=== PATIENT | male | born 1940 | race Caucasian/White ===

== ENCOUNTER 2019-05-04 00:53 | Inpatient (IN) | payer OTHER ==
[~2019-05-04] VITALS: Ht 162.6 cm; Wt 73.6 kg
[2019-05-04 01:00] VITALS: BP_SYST 120
[2019-05-04] MEDS ORDERED: lisinopril PO (01:41)
[2019-05-04] MEDS ORDERED: ALLOPURINOL PO (01:42)
[2019-05-04 03:00] LABS: BASOPHILS % (AUTO) 0.3 % (0.0-2.0); HEMOGLOBIN 14.3 g/dL (14.0-18.0); LYMPHOCYTES # (AUTO) 0.6 K/uL (1.0-5.5); LYMPHOCYTES % (AUTO) 4.2 % (20.5-51.5); MEAN CORPUSCULAR HEMOGLOBIN 32 pg (27-31); MEAN CORPUSCULAR HGB CONC 35 % (32-36); MEAN CORPUSCULAR VOLUME 91 fL (79.0-98.0); MONOCYTES # (AUTO) 0.6 K/uL (0.0-1.0); MONOCYTES % (AUTO) 4.2 % (1.7-9.3); NEUTROPHILS # (AUTO) 12.9 K/uL (1.8-7.7); NEUTROPHILS % (AUTO) 91.3 % (40.0-70.0); PLATELET COUNT (AUTO) 149 K/uL (130-430); RED BLOOD CELL COUNT(AUTO) 4.49 MIL/uL (4.2-6.2); RED CELL DISTRIBUTION WIDTH 14.4 % (9.0-15.0); WHITE BLOOD COUNT (AUTO) 14.1 K/uL (4.8-10.8)
[2019-05-04 03:25] LABS: ANION GAP 12 (5-15); CHLORIDE 98 mmol/L (98-107); CREATININE 1.67 mg/dL (0.55-1.30); GLUCOSE 210 mg/dL (70-99); POTASSIUM 3.6 mmol/L (3.5-5.1); SODIUM SERUM 133 mmol/L (136-145); UREA NITROGEN, BLOOD 22 mg/dL (8-21)
[2019-05-04 03:29] LABS: ALANINE AMINOTRANSFERASE 13 U/L (12-78); ALBUMIN 3.3 g/dL (3.4-4.8); ASPARTATE AMINOTRANSFERASE 16 U/L (10-37); TOTAL BILIRUBIN 0.9 mg/dL (0.0-1.0)
[2019-05-04] MEDS ORDERED: VANCOMYCIN HCL 1,000 MG in NS 250 ML IV ONE (04:00)
[2019-05-04] MEDS ORDERED: PIPERACILLIN/TAZO 3.375 GM in NS 50 ML IV ONE (04:00)
[2019-05-04] MEDS ORDERED: PIPERACILLIN/TAZOBACTAM 3.375 GM/VIAL (ZOSYN) IV ONE (04:08)
[2019-05-04] MEDS ORDERED: NACL 0.9% IV ONE (04:15)
[2019-05-04] MEDS ORDERED: NACL 0.9% 1,000 ML IV ONE (04:15)
[2019-05-04] MEDS ORDERED: VANCOMYCIN HCL 1000 MG/VIAL IV ONE ×2 (04:57)
[2019-05-04] MEDS ORDERED: NS IV ONE (05:45)
[2019-05-04] MEDS ORDERED: TAZO IV ONE (05:45)
[2019-05-04] MEDS ORDERED: PIPERACILLIN IV ONE (05:45)
[2019-05-04 06:19] VITALS: BP_SYST 145
[2019-05-04 06:26] LABS: BILIRUBIN,URINE NEGATIVE (NEGATIVE); BLOOD, URINE 3+ (NEGATIVE); CLARITY/URINE SL HAZY (CLEAR); COLOR,URINE YELLOW (YELLOW); GLUCOSE,URINE NEGATIVE (NEGATIVE); KETONES,URINE 1+ (NEGATIVE); LEUKOCYTE ESTERASE ,URINE NEGATIVE (NEGATIVE); NITRITE, URINE POSITIVE (NEGATIVE); PH,URINE 5.5 (5.0-8.0); PROTEIN URINE TRACE (NEGATIVE); UROBILINOGEN,URINE 0.2 (0.2-1.0)
[2019-05-04] MEDS: NACL 0.9% 1,000 ML IV SCH ×2 (06:36→20:47)
[2019-05-04 06:53] LABS: BACTERIA,URINE FEW /HPF (None Seen); MUCUS,URINE None Seen /LPF (None Seen); RBC,URINE >100 /HPF (0-3); WBC,URINE 0-3 /HPF (0-3)
[2019-05-04 08:22] VITALS: BP_SYST 143
[2019-05-04] MEDS ORDERED: INSULIN REGULAR, HUMAN 100 UNITS/ML, 10 ML VIAL (humuLIN R) SUBCUT PRN (10:15)
[2019-05-04] MEDS ORDERED: DEXTROSE 50% JECT 50 ML DISP.SYRIN IVP PRN (10:15)
[2019-05-04] MEDS: PIPERACILLIN/TAZOBACTAM 2.25 GM/ D5W 50 ML IV SCH ×6 (11:19→23:48)
[2019-05-04 12:29] VITALS: BP_SYST 122
[2019-05-04 16:12] VITALS: BP_SYST 118
[2019-05-04] MEDS ORDERED: LISI-600 PO (17:56)
[2019-05-04] MEDS ORDERED: COR12.5 PO (17:56)
[2019-05-04] MEDS ORDERED: ALLO100T PO (17:56)
[2019-05-04 20:40] VITALS: BP_SYST 129
[2019-05-05 02:33] VITALS: BP_SYST 122
[2019-05-05] MEDS: PIPERACILLIN/TAZOBACTAM 2.25 GM/ D5W 50 ML IV SCH ×2 (05:37)
[2019-05-05 06:10] LABS: BASOPHILS % (AUTO) 0.6 % (0.0-2.0); EOSINOPHILS # (AUTO) 0.1 K/uL (0.0-0.4); EOSINOPHILS % (AUTO) 0.7 % (0.0-4.0); HEMOGLOBIN 12.5 g/dL (14.0-18.0); LYMPHOCYTES # (AUTO) 1.4 K/uL (1.0-5.5); LYMPHOCYTES % (AUTO) 16.4 % (20.5-51.5); MEAN CORPUSCULAR HEMOGLOBIN 32 pg (27-31); MEAN CORPUSCULAR HGB CONC 35 % (32-36); MEAN CORPUSCULAR VOLUME 93 fL (79.0-98.0); MONOCYTES # (AUTO) 0.7 K/uL (0.0-1.0); MONOCYTES % (AUTO) 8.1 % (1.7-9.3); NEUTROPHILS # (AUTO) 6.5 K/uL (1.8-7.7); NEUTROPHILS % (AUTO) 74.2 % (40.0-70.0); PLATELET COUNT (AUTO) 122 K/uL (130-430); RED BLOOD CELL COUNT(AUTO) 3.89 MIL/uL (4.2-6.2); RED CELL DISTRIBUTION WIDTH 14.8 % (9.0-15.0); WHITE BLOOD COUNT (AUTO) 8.7 K/uL (4.8-10.8)
[2019-05-05 06:54] LABS: ALBUMIN 2.6 g/dL (3.4-4.8); ANION GAP 7 (5-15); ASPARTATE AMINOTRANSFERASE 24 U/L (10-37); CALCIUM 7.6 mg/dL (8.4-11.0); CHLORIDE 104 mmol/L (98-107); CREATININE 1.56 mg/dL (0.55-1.30); GLUCOSE 98 mg/dL (70-99); POTASSIUM 3.3 mmol/L (3.5-5.1); SODIUM SERUM 135 mmol/L (136-145); TOTAL BILIRUBIN 0.7 mg/dL (0.0-1.0); UREA NITROGEN, BLOOD 20 mg/dL (8-21)
[2019-05-05 07:15] LABS: ALANINE AMINOTRANSFERASE 12 U/L (12-78)
[2019-05-05 08:00] VITALS: BP_SYST 144
[2019-05-05] MEDS ORDERED: CARVEDILOL 12.5 MG TABLET (COREG) PO SCH (09:00)
[2019-05-05] MEDS ORDERED: ALLOPURINOL 100 MG TABLET (ZYLOPRIM) PO SCH (09:00)
[2019-05-05] MEDS ORDERED: LISINOPRIL 20 MG TABLET PO SCH (09:00)
[2019-05-05] MEDS ORDERED: METR500T PO (09:36)
[2019-05-05] MEDS ORDERED: LEVO750T45 PO (09:36)
[2019-05-05 11:19] VITALS: BP_SYST 144
== END 2019-05-05 11:50 | disposition home or self-care (01) | DRG 872 ==
LOC: SED 00:53 → SMU 05:34
PROVIDERS: ADMIT Internal Medicine Hospice and Palliative Medicine; ATTEND Internal Medicine Hospice and Palliative Medicine
DX: A41.9 Sepsis, unspecified organism (principal); R10.9 Unspecified abdominal pain; R50.9 Fever, unspecified; R19.7 Diarrhea, unspecified; I10 Essential (primary) hypertension; M10.9 Gout, unspecified; R31.9 Hematuria, unspecified; N28.9 Disorder of kidney and ureter, unspecified; E11.9 Type 2 diabetes mellitus without complications; Z79.899 Other long term (current) drug therapy
CPT/HCPCS: 36415; 71045; 76770; 80053; 81000-TC; 82962; 83605; 84484; 85025; 87040-TC; 87230-TC; 93005; 96365; 96366; 96367; 99285; J1815; J2543; J3370; J7030; J7060